=== PATIENT | male | born 1940 | race Caucasian/White ===

== ENCOUNTER 2021-02-13 11:13 | Outpatient (CLI) | payer MEDICARE | END 2021-02-13 11:14 | disposition home or self-care (01) | LOC: BICRAD 11:13 | PROVIDERS: ATTEND Internal Medicine Cardiovascular Disease | DX: R06.02 Shortness of breath (principal) | CPT/HCPCS: 71046 ==

== ENCOUNTER 2021-04-10 08:06 | Outpatient (CLI) | payer MEDICARE | END 2021-04-10 08:07 | disposition home or self-care (01) | LOC: RAD 08:06 | PROVIDERS: ATTEND Internal Medicine Critical Care Medicine | DX: R06.00 Dyspnea, unspecified (principal); J90 Pleural effusion, not elsewhere classified | CPT/HCPCS: 71046 ==

== ENCOUNTER 2021-04-21 07:49 | Outpatient (CLI) | payer MEDICARE | END 2021-04-21 07:50 | disposition home or self-care (01) | LOC: TBSIIMAG 07:49 → RAD 07:50 | PROVIDERS: ATTEND Neurological Surgery | DX: R06.00 Dyspnea, unspecified (principal); M54.50 Low back pain, unspecified; M48.062 Spinal stenosis, lumbar region with neurogenic claudication; I51.7 Cardiomegaly; J90 Pleural effusion, not elsewhere classified; M47.816 Spondylosis without myelopathy or radiculopathy, lumbar region | CPT/HCPCS: 71046; 72110; 72148; 78451; A9540 ==

== ENCOUNTER 2021-06-12 11:12 | Outpatient (CLI) | payer MEDICARE | END 2021-06-12 11:13 | disposition home or self-care (01) | LOC: CT 11:12 | PROVIDERS: ATTEND Internal Medicine Critical Care Medicine | DX: J84.10 Pulmonary fibrosis, unspecified (principal); R06.00 Dyspnea, unspecified; J90 Pleural effusion, not elsewhere classified; J92.9 Pleural plaque without asbestos | CPT/HCPCS: 71250 ==

== ENCOUNTER 2021-07-14 15:36 | Inpatient (IN) | payer MEDICARE ==
[2021-07-14 16:33] LABS: #Eosinphils 0.1 thou/uL (0.0-0.7); #Monocytes 0.6 thou/uL (0.11-0.59); #Neutrophils 3.4 thou/uL (1.40-6.50); %Basophils 0.6 % (0.0-1.0); %Eosinophils 1.3 % (0.0-10.0); %Lymphocytes 19.5 % (21.0-51.0); %Monocytes 10.7 % (0.0-10.0); %Neutrophils 67.8 % (42.0-75.0); Hemoglobin 11.1 g/dL (14.0-18.0); Mean Corpuscular HGB CONC 32.6 g/dL (32.0-36.0); Mean Corpuscular Hemoglobin 34.4 pg (27.0-31.0); Mean Platelet Volume 9.6 fL (7.4-10.4); Platelet Count 92 thou/uL (130-400); RBC Distribution Width 13.1 % (11.5-14.5); Red Blood Cell (RBC) Count 3.22 mill/uL (4.70-6.10); White Blood Cell (WBC) Count 5.1 thou/uL (4.8-10.8)
[2021-07-14 16:49] LABS: Burr Cells SLIGHT = 2-5 cells (100X) (0-1/hpf); MDiff Complete? YES; Macrocytosis SLIGHT = 6-15 cells (100X) (0-5/hpf); Ovalocytes SLIGHT = 2-5 cells (100X) (0-1/hpf); Platelet Morphology Comment Appears Decreased; Polychromasia SLIGHT = 2-3 cells (100X) (0-2/hpf)
[2021-07-14 16:55] LABS: ALT (SGPT) 23 U/L (8-55); AST (SGOT) 29 U/L (5-34); Albumin 4.1 g/dL (3.4-4.8); Alkaline Phosphatase 151 U/L (40-110); Anion Gap 13 mmol/L (10-20); BUN (Urea Nitrogen) 26 mg/dL (8.4-25.7); Bilirubin, Total 0.6 mg/dL (0.2-1.2); Calc. Creatinine Clearance 0 mL/min (70-130); Calcium 9.4 mg/dL (7.8-10.44); Carbon Dioxide 22 mmol/L (23-31); Chloride 110 mmol/L (98-107); Globulin 3.1 g/dL (2.4-3.5); Glucose 106 mg/dL (83-110); Potassium 4.4 mmol/L (3.5-5.1); Protein, Total 7.2 g/dL (5.8-8.1); Sodium 141 mmol/L (136-145)
[2021-07-14 17:02] LABS: INR-International Normal Ratio 1.2; PTT 31.7 sec (22.9-36.1)
[2021-07-14] MEDS ORDERED: cloNIDine 0.1 MG TAB ONE (17:55)
[2021-07-14] MEDS ORDERED: Acetaminophen 325 MG TAB PO PRN (19:22)
[2021-07-14] MEDS ORDERED: Albuterol Sulfate 2.5 mg/3 ml Neb NEB PRN (19:25)
[2021-07-14] MEDS ORDERED: Pantoprazole 40 MG VIAL IVP SCH (19:30)
[2021-07-14] MEDS: Lactated Ringer's 1,000 ML IV SCH (20:57)
[2021-07-14] MEDS ORDERED: cloNIDine 0.1 MG TAB PO SCH (21:00)
[2021-07-14] MEDS ORDERED: Carvedilol 25 MG TAB PO SCH (21:00)
[2021-07-14] MEDS: Doxazosin 2 MG TAB PO SCH (22:28)
[2021-07-15 01:24] VITALS: BMI 26.4
[2021-07-15] MEDS: Lactated Ringer's 1,000 ML IV SCH ×3 (05:47→20:16)
[2021-07-15 07:09] LABS: Hemoglobin 10.5 g/dL (14.0-18.0); Mean Corpuscular HGB CONC 31.7 g/dL (32.0-36.0); Mean Corpuscular Hemoglobin 33.9 pg (27.0-31.0); Platelet Count 99 thou/uL (130-400); RBC Distribution Width 13.2 % (11.5-14.5); White Blood Cell (WBC) Count 4.8 thou/uL (4.8-10.8)
[2021-07-15 07:20] LABS: ALT (SGPT) 18 U/L (8-55); AST (SGOT) 21 U/L (5-34); Albumin 3.6 g/dL (3.4-4.8); Alkaline Phosphatase 135 U/L (40-110); Anion Gap 12 mmol/L (10-20); BUN (Urea Nitrogen) 22 mg/dL (8.4-25.7); Bilirubin, Total 0.8 mg/dL (0.2-1.2); Calc. Creatinine Clearance 41 mL/min (70-130); Calcium 8.9 mg/dL (7.8-10.44); Carbon Dioxide 21 mmol/L (23-31); Chloride 111 mmol/L (98-107); Globulin 2.8 g/dL (2.4-3.5); Glucose 87 mg/dL (83-110); Iron 61 ug/dL (65-175); Iron Binding Capacity, Total 239 mcg/dL (261-462); Potassium 3.8 mmol/L (3.5-5.1); Protein, Total 6.4 g/dL (5.8-8.1); Sodium 140 mmol/L (136-145)
[2021-07-15 07:44] LABS: Ferritin 213.06 ng/mL (22-322)
[2021-07-15] MEDS: Rosuvastatin 20 MG TAB PO SCH (08:37)
[2021-07-15] MEDS: Carvedilol 25 MG TAB PO SCH ×2 (08:39→16:47)
[2021-07-15] MEDS: Doxazosin 2 MG TAB PO SCH ×2 (08:39→20:15)
[2021-07-15] MEDS: cloNIDine 0.1 MG TAB PO SCH ×2 (08:40→20:14)
[2021-07-15] MEDS: Pantoprazole 40 MG VIAL IVP SCH (08:40)
[2021-07-15] MEDS ORDERED: Tamsulosin HCl 0.4 MG CAP PO SCH (09:00)
[2021-07-15 09:41] LABS: Band 11 % (5-11); Eosinophils 3 % (0-10); Lymphocytes 18 % (21-51); MDiff Complete? YES; Monocytes 12 % (0-10); Neutrophil 56 % (42-75); Ovalocytes SLIGHT = 2-5 cells (100X) (0-1/hpf); Platelet Morphology Comment Appears Decreased; Polychromasia SLIGHT = 2-3 cells (100X) (0-2/hpf)
[2021-07-15] MEDS ORDERED: hydrALAZINE 20 MG/ML VIAL SLOW IVP PRN (12:12)
[2021-07-15 14:29] LABS: #Eosinphils 0.1 thou/uL (0.0-0.7); #Lymphocytes 0.8 thou/uL (1.20-3.40); #Monocytes 0.4 thou/uL (0.11-0.59); #Neutrophils 3.2 thou/uL (1.40-6.50); %Basophils 0.3 % (0.0-1.0); %Eosinophils 1.4 % (0.0-10.0); %Lymphocytes 18.6 % (21.0-51.0); %Monocytes 9.3 % (0.0-10.0); %Neutrophils 70.4 % (42.0-75.0); Hemoglobin 11.5 g/dL (14.0-18.0); Mean Corpuscular HGB CONC 32.2 g/dL (32.0-36.0); Platelet Count 89 thou/uL (130-400); Red Blood Cell (RBC) Count 3.39 mill/uL (4.70-6.10); White Blood Cell (WBC) Count 4.5 thou/uL (4.8-10.8)
[2021-07-15 16:07] LABS: SARS-CoV-2 PCR by NAA Not Detected (NotDetected)
[2021-07-15] MEDS ORDERED: GoLYTELY 4,000 ml Bottle PO SCH (17:15)
[2021-07-15] MEDS: Tamsulosin HCl 0.4 MG CAP PO SCH (20:14)
[2021-07-16 05:57] LABS: Hemoglobin 11.9 g/dL (14.0-18.0); Mean Corpuscular HGB CONC 32.2 g/dL (32.0-36.0); Mean Corpuscular Hemoglobin 33.8 pg (27.0-31.0); Mean Platelet Volume 9.6 fL (7.4-10.4); Platelet Count 96 thou/uL (130-400); Red Blood Cell (RBC) Count 3.52 mill/uL (4.70-6.10); White Blood Cell (WBC) Count 5.8 thou/uL (4.8-10.8)
[2021-07-16 06:13] LABS: ALT (SGPT) 18 U/L (8-55); AST (SGOT) 27 U/L (5-34); Alkaline Phosphatase 151 U/L (40-110); Anion Gap 17 mmol/L (10-20); BUN (Urea Nitrogen) 19 mg/dL (8.4-25.7); Bilirubin, Total 1.1 mg/dL (0.2-1.2); Calc. Creatinine Clearance 42 mL/min (70-130); Calcium 9.2 mg/dL (7.8-10.44); Carbon Dioxide 20 mmol/L (23-31); Chloride 107 mmol/L (98-107); Globulin 3.1 g/dL (2.4-3.5); Glucose 115 mg/dL (83-110); Potassium 3.9 mmol/L (3.5-5.1); Protein, Total 7.1 g/dL (5.8-8.1); Sodium 140 mmol/L (136-145)
[2021-07-16] MEDS: Carvedilol 25 MG TAB PO SCH ×2 (06:43→17:15)
[2021-07-16] MEDS ORDERED: FLU VACC QS2021-22(65YR UP)/PF 240 MCG/0.7 ML SYRINGE IM ONE (08:15)
[2021-07-16] MEDS: cloNIDine 0.1 MG TAB PO SCH ×3 (08:17→20:25)
[2021-07-16] MEDS: Doxazosin 2 MG TAB PO SCH ×2 (08:17→21:59)
[2021-07-16] MEDS: Rosuvastatin 20 MG TAB PO SCH (08:17)
[2021-07-16] MEDS: Pantoprazole 40 MG VIAL IVP SCH (08:17)
[2021-07-16 08:34] LABS: Band 1 % (5-11); Lymphocytes 14 % (21-51); MDiff Complete? YES; Monocytes 7 % (0-10); Neutrophil 74 % (42-75); Platelet Morphology Comment Appears Decreased; Polychromasia SLIGHT = 2-3 cells (100X) (0-2/hpf); Reactive Lymphocytes 4 % (0-10)
[2021-07-16] MEDS: NIFEdipine XL 60 MG TAB PO SCH ×2 (09:02→14:23)
[2021-07-16] MEDS ORDERED: Furosemide 40 MG/4 ML VIAL SLOW IVP SCH (19:30)
[2021-07-16] MEDS ORDERED: Potassium Chloride 20 MEQ TAB PO SCH (19:30)
[2021-07-16] MEDS: Tamsulosin HCl 0.4 MG CAP PO SCH (20:24)
[2021-07-17] MEDS: Carvedilol 25 MG TAB PO SCH ×2 (05:48→17:06)
[2021-07-17 05:56] LABS: Band 7 % (5-11); Hemoglobin 10.9 g/dL (14.0-18.0); Lymphocytes 10 % (21-51); MDiff Complete? YES; Macrocytosis SLIGHT = 6-15 cells (100X) (0-5/hpf); Mean Corpuscular HGB CONC 32.3 g/dL (32.0-36.0); Mean Platelet Volume 9.5 fL (7.4-10.4); Neutrophil 82 % (42-75); Platelet Count 104 thou/uL (130-400); Platelet Morphology Comment Appears Decreased; RBC Distribution Width 13.2 % (11.5-14.5); Reactive Lymphocytes 1 % (0-10); Red Blood Cell (RBC) Count 3.21 mill/uL (4.70-6.10); White Blood Cell (WBC) Count 7.1 thou/uL (4.8-10.8)
[2021-07-17 06:06] LABS: ALT (SGPT) 18 U/L (8-55); AST (SGOT) 33 U/L (5-34); Albumin 3.7 g/dL (3.4-4.8); Alkaline Phosphatase 126 U/L (40-110); Anion Gap 18 mmol/L (10-20); BUN (Urea Nitrogen) 25 mg/dL (8.4-25.7); Bilirubin, Total 1.2 mg/dL (0.2-1.2); Calc. Creatinine Clearance 29 mL/min (70-130); Calcium 8.9 mg/dL (7.8-10.44); Carbon Dioxide 17 mmol/L (23-31); Chloride 108 mmol/L (98-107); Globulin 2.9 g/dL (2.4-3.5); Glucose 127 mg/dL (83-110); Potassium 4.4 mmol/L (3.5-5.1); Protein, Total 6.6 g/dL (5.8-8.1); Sodium 139 mmol/L (136-145)
[2021-07-17] MEDS: Doxazosin 2 MG TAB PO SCH ×2 (08:22→20:31)
[2021-07-17] MEDS: cloNIDine 0.1 MG TAB PO SCH ×2 (08:22→20:36)
[2021-07-17] MEDS: Rosuvastatin 20 MG TAB PO SCH ×2 (08:23→20:31)
[2021-07-17] MEDS: NIFEdipine XL 60 MG TAB PO SCH (08:23)
[2021-07-17] MEDS ORDERED: ePHEDrine 50 MG/ML VIAL ONE (11:49)
[2021-07-17] MEDS ORDERED: PHENYLEPHRINE-NS 100 MCG/ML 10 ML SYRINGE ONE (11:49)
[2021-07-17] MEDS ORDERED: Lidocaine 1% PF 5 ML VIAL ONE (11:49)
[2021-07-17] MEDS ORDERED: PROPOFOL 200 MG/20 ML VIAL ONE (11:49)
[2021-07-17] MEDS ORDERED: Promethazine HCl 25 MG/ML VIAL IVPB PRN (11:59)
[2021-07-17] MEDS ORDERED: Promethazine HCl 25 MG/ML VIAL IM PRN (11:59)
[2021-07-17] MEDS ORDERED: Ondansetron HCl/PF 4 MG/2 ML Vial IVP PRN (11:59)
[2021-07-17] MEDS: Docusate 100 MG CAP PO SCH (20:30)
[2021-07-17] MEDS: Tamsulosin HCl 0.4 MG CAP PO SCH (20:30)
[2021-07-18 06:00] LABS: Creatinine, Urine 311.25 mg/dL (63-166)
[2021-07-18 06:17] LABS: Hemoglobin 10.3 g/dL (14.0-18.0); Mean Corpuscular HGB CONC 33.3 g/dL (32.0-36.0); Mean Corpuscular Hemoglobin 34.1 pg (27.0-31.0); Mean Platelet Volume 9.4 fL (7.4-10.4); Platelet Count 92 thou/uL (130-400); RBC Distribution Width 13.2 % (11.5-14.5); Red Blood Cell (RBC) Count 3.03 mill/uL (4.70-6.10); White Blood Cell (WBC) Count 7.7 thou/uL (4.8-10.8)
[2021-07-18 06:18] LABS: Band 1 % (5-11); Eosinophils 1 % (0-10); Large Platelets SLIGHT; Lymphocytes 10 % (21-51); MDiff Complete? YES; Macrocytosis SLIGHT = 6-15 cells (100X) (0-5/hpf); Monocytes 10 % (0-10); Neutrophil 78 % (42-75); Platelet Morphology Comment Appears Decreased
[2021-07-18 06:26] LABS: ALT (SGPT) 21 U/L (8-55); AST (SGOT) 42 U/L (5-34); Albumin 3.8 g/dL (3.4-4.8); Alkaline Phosphatase 127 U/L (40-110); Anion Gap 16 mmol/L (10-20); BUN (Urea Nitrogen) 32 mg/dL (8.4-25.7); Calc. Creatinine Clearance 18 mL/min (70-130); Calcium 8.8 mg/dL (7.8-10.44); Carbon Dioxide 20 mmol/L (23-31); Chloride 104 mmol/L (98-107); Globulin 2.9 g/dL (2.4-3.5); Glucose 139 mg/dL (83-110); Potassium 4.2 mmol/L (3.5-5.1); Protein, Total 6.7 g/dL (5.8-8.1); Sodium 136 mmol/L (136-145)
[2021-07-18] MEDS: Docusate 100 MG CAP PO SCH ×2 (08:47→20:13)
[2021-07-18] MEDS: Carvedilol 25 MG TAB PO SCH ×2 (08:47→17:26)
[2021-07-18] MEDS: cloNIDine 0.1 MG TAB PO SCH ×3 (08:51→20:14)
[2021-07-18] MEDS ORDERED: NIFEdipine XL 30 MG TAB PO SCH (09:00)
[2021-07-18] MEDS: Doxazosin 2 MG TAB PO SCH ×2 (09:04→20:13)
[2021-07-18] MEDS ORDERED: Carvedilol 25 MG TAB PO SCH (09:15)
[2021-07-18] MEDS: Lactated Ringer's 1,000 ML IV SCH ×2 (12:15→20:11)
[2021-07-18] MEDS: Tamsulosin HCl 0.4 MG CAP PO SCH (20:13)
[2021-07-18] MEDS: Rosuvastatin 20 MG TAB PO SCH (20:13)
[2021-07-18 20:33] LABS: Anion Gap 17 mmol/L (10-20); BUN (Urea Nitrogen) 34 mg/dL (8.4-25.7); Calc. Creatinine Clearance 17 mL/min (70-130); Calcium 8.8 mg/dL (7.8-10.44); Carbon Dioxide 17 mmol/L (23-31); Chloride 105 mmol/L (98-107); Glucose 121 mg/dL (83-110); Potassium 4.1 mmol/L (3.5-5.1); Sodium 135 mmol/L (136-145)
[2021-07-19 00:45] LABS: Bacteria/HPF None Seen HPF (None Seen); Bilirubin Negative (Negative); Blood, Urine Trace (Negative); Clarity Clear (Clear); Glucose, Urine (Dipstick) Normal (Negative); Ketone, Urine Negative (Negative); Leukocyte Negative Leu/uL (Negative); Nitrite Negative (Negative); Protein, Urine (Dipstick) 20 mg/dL (Neg-Trace); RBC/HPF 0-3 HPF (0-3); Specific Gravity, Urine 1.009 (1.002-1.036); Squamous Epithelial 0-3 HPF (0-3); Urobilinogen Normal mg/dL (Less than 2)
[2021-07-19] MEDS: Lactated Ringer's 1,000 ML IV SCH (04:38)
[2021-07-19] MEDS: Carvedilol 25 MG TAB PO SCH (08:05)
[2021-07-19] MEDS: cloNIDine 0.1 MG TAB PO SCH (08:06)
[2021-07-19] MEDS: Docusate 100 MG CAP PO SCH (08:07)
[2021-07-19] MEDS: Doxazosin 2 MG TAB PO SCH (08:07)
[2021-07-19 09:02] LABS: Mean Corpuscular HGB CONC 32.6 g/dL (32.0-36.0); RBC Distribution Width 13.2 % (11.5-14.5); Red Blood Cell (RBC) Count 3.24 mill/uL (4.70-6.10); White Blood Cell (WBC) Count 7.3 thou/uL (4.8-10.8)
[2021-07-19 09:07] LABS: ALT (SGPT) 25 U/L (8-55); AST (SGOT) 46 U/L (5-34); Albumin 4.1 g/dL (3.4-4.8); Alkaline Phosphatase 141 U/L (40-110); Anion Gap 16 mmol/L (10-20); BUN (Urea Nitrogen) 39 mg/dL (8.4-25.7); Bilirubin, Total 0.9 mg/dL (0.2-1.2); Calc. Creatinine Clearance 19 mL/min (70-130); Calcium 9.2 mg/dL (7.8-10.44); Carbon Dioxide 21 mmol/L (23-31); Chloride 105 mmol/L (98-107); Glucose 119 mg/dL (83-110); Potassium 4.6 mmol/L (3.5-5.1); Protein, Total 7.1 g/dL (5.8-8.1); Sodium 137 mmol/L (136-145)
[2021-07-19 09:28] LABS: Band 1 % (5-11); Eosinophils 1 % (0-10); Lymphocytes 10 % (21-51); MDiff Complete? YES; Macrocytosis SLIGHT = 6-15 cells (100X) (0-5/hpf); Mean Platelet Volume 9.7 fL (7.4-10.4); Monocytes 11 % (0-10); Neutrophil 77 % (42-75); Platelet Count 104 thou/uL (130-400); Platelet Morphology Comment Appears Decreased
[2021-07-19 13:58] VITALS: BP 157/78; TEMP 98
== END 2021-07-19 13:45 | disposition home or self-care (01) | DRG 393 ==
LOC: ERS 15:36 → T4-A 18:09 → OBSVTOIN 07-16 09:44
PROVIDERS: ADMIT Emergency Medicine; ATTEND Emergency Medicine
PROC: 0DBH8ZX Excision of Cecum, Via Natural or Artificial Opening Endoscopic, Diagnostic (ICD-10-PCS; principal; 2021-07-17)
PROC: 0DBL8ZX Excision of Transverse Colon, Via Natural or Artificial Opening Endoscopic, Diagnostic (ICD-10-PCS; 2021-07-17)
DX: K64.8 Other hemorrhoids (principal); I50.33 Acute on chronic diastolic (congestive) heart failure; N17.9 Acute kidney failure, unspecified; I13.0 Hypertensive heart and chronic kidney disease with heart failure and stage 1 through stage 4 chronic kidney disease, or unspecified chronic kidney disease; Z20.822 Contact with and (suspected) exposure to COVID-19; K64.4 Residual hemorrhoidal skin tags; I25.10 Atherosclerotic heart disease of native coronary artery without angina pectoris; N18.32 Chronic kidney disease, stage 3b; E78.5 Hyperlipidemia, unspecified; D50.0 Iron deficiency anemia secondary to blood loss (chronic); N40.0 Benign prostatic hyperplasia without lower urinary tract symptoms; Z96.653 Presence of artificial knee joint, bilateral; I34.0 Nonrheumatic mitral (valve) insufficiency; J92.0 Pleural plaque with presence of asbestos; I27.20 Pulmonary hypertension, unspecified; K63.5 Polyp of colon; I50.9 Heart failure, unspecified; E86.9 Volume depletion, unspecified; Z28.21 Immunization not carried out because of patient refusal; Z95.1 Presence of aortocoronary bypass graft; Z88.2 Allergy status to sulfonamides; Z79.899 Other long term (current) drug therapy; Z79.02 Long term (current) use of antithrombotics/antiplatelets; Z98.890 Other specified postprocedural states; Z80.0 Family history of malignant neoplasm of digestive organs; Z80.3 Family history of malignant neoplasm of breast
CPT/HCPCS: 36415; 80053; 81003; 81015; 82274; 82570; 82607; 82728; 82746; 83540; 83550; 83880; 84540; 85007; 85025; 85027; 85610; 85730; 86850; 86900; 86901; 88305; 93005; 93010; 94640; 96374; 96375; 96376; 99285; C9113; G0378; J0360; J1940; J2704; J3490; J7120; J7611; J7620; U0003; U0005